=== PATIENT | female | born 1945 | race Caucasian/White ===

== ENCOUNTER 2020-12-30 07:59 | Outpatient (CLI) | payer MEDICARE, OTHER, SELFPAY ==
--- NOTE | 2020-12-30 | EST_ITS ---
Patient Info Name: Manjit Fuller Age: 75 years : 1945 Gender: Female Ht: 60 in Wt: 123 lbs BSA: 1.55 m2 HR: 70 bpm BP: 152 / 70 mmHg Heart Rhythm: Sinus Rhythm Exam Date: 12/30/2020 9:00 AM Exam Location: [facility] Stress Patient Status: Outpatient Admit Date: 12/30/2020 Staff Ordering Physician: Tre, Ada CENTENO Attending Provider: Tre, Ada CENTENO Exercise Technologist: Genoveva Casey CT Exercise Physician: Toño Baxter MD Exam Type: CA stress test treadmill w NM Study Info Indications R06.00 - Dyspnea, unspecified A nuclear stress test was performed. Summary 1. Nondiagnostic ST/T wave changes with exercise with upsloping inferior ST segment depression of up to 1.3 mm which are equivocal for ischemia. 2. Please correlate with nuclear medicine images, reported separately. Protocol: Dm Stress ECG Details Stage: REST Duration (min): 1 min : 2 sec Speed (mph): 0.0 Grade (%): 0 HR (bpm): 71 SBP (mmHg): 152 DBP (mmHg): 72 METS: --- Stage: REST Duration (min): 20 min : 15 sec Speed (mph): 0.0 Grade (%): 0 HR (bpm): 73 SBP (mmHg): 152 DBP (mmHg): 72 METS: --- Stage: STAGE 1 Duration (min): 1 min : 0 sec Speed (mph): 1.7 Grade (%): 10 HR (bpm): 98 SBP (mmHg): 152 DBP (mmHg): 72 METS: --- Stage: STAGE 1 Duration (min): 2 min : 0 sec Speed (mph): 1.7 Grade (%): 10 HR (bpm): 115 SBP (mmHg): 152 DBP (mmHg): 72 METS: --- Stage: STAGE 1 Duration (min): 3 min : 0 sec Speed (mph): 1.7 Grade (%): 10 HR (bpm): 114 SBP (mmHg): 142 DBP (mmHg): 75 METS: --- Stage: STAGE 2 Duration (min): 1 min : 0 sec Speed (mph): 2.5 Grade (%): 12 HR (bpm): 129 SBP (mmHg): 172 DBP (mmHg): 69 METS: --- Stage: STAGE 2 Duration (min): 2 min : 0 sec Speed (mph): 2.5 Grade (%): 12 HR (bpm): 138 SBP (mmHg): 179 DBP (mmHg): 63 METS: --- Stage: STAGE 2 Duration (min): 2 min : 59 sec Speed (mph): 2.5 Grade (%): 12 HR (bpm): 141 SBP (mmHg): 179 DBP (mmHg): 63 METS: --- Stage: RECOVERY Duration (min): 1 min : 0 sec Speed (mph): 0.0 Grade (%): 0 HR (bpm): 121 SBP (mmHg): 179 DBP (mmHg): 63 METS: --- Stage: RECOVERY Duration (min): 2 min : 0 sec Speed (mph): 0.0 Grade (%): 0 HR (bpm): 106 SBP (mmHg): 179 DBP (mmHg): 63 METS: --- Stage: RECOVERY Duration (min): 3 min : 0 sec Speed (mph): 0.0 Grade (%): 0 HR (bpm): 96 SBP (mmHg): 184 DBP (mmHg): 73 METS: --- Stage: RECOVERY Duration (min): 3 min : 2 sec Speed (mph): 0.0 Grade (%): 0 HR (bpm): 97 SBP (mmHg): 184 DBP (mmHg): 73 METS: --- Rest HR: 73 bpm Peak HR: 143 bpm Rest Sys BP: 152 mmHg Peak Sys BP: 184 mmHg Max Pred HR: 145 bpm % Max Pred HR: 9
--- NOTE | ~2020-12-30 | NM_ITS ---
EXAMINATION: NM stress w perf spect multi DATE: 12/30/2020 12:10 INDICATION: Dyspnea on exertion. TECHNIQUE: Rest images were obtained following intravenous administration of 9.7 mCi Tc99m tetrofosmi n ([employer]). The patient performed an exercise activity. At peak exercise, 30 mCi Tc99m tetrofosmin ( [employer]) was administered intravenously, and stress images were obtained. Data was reconstructed into short axis and horizontal and vertical long axis SPECT images. Gated SPECT images were also obtained . COMPARISON: None. FINDINGS: There is no definite reversible or fixed perfusion abnormality to suggest ischemia or infar ction. There is no segmental wall motion abnormality. Left ventricular ejection fraction measures > 70%. IMPRESSION: 1. No definite ischemia or infarct. 2. Normal left ventricular ejection fraction measuring >70%. Reviewed, dictated and finalized at location A.
== END 2020-12-30 08:00 | disposition home or self-care (01) ==
LOC: ANHCARD 08:02
PROVIDERS: PCP Nurse Practitioner Adult Health; Visit Provider Nurse Practitioner Adult Health
DX: R06.09 Other forms of dyspnea (principal)
CPT/HCPCS: 78452; 93017; A9502